=== PATIENT | male | born 1960 | race Two or more races ===

== ENCOUNTER 2020-06-10 11:43 | Outpatient (CLI) | payer OTHER ==
[~2020-06-10] VITALS: Ht 182.9 cm; Wt 88.5 kg
[2020-06-10] MEDS ORDERED: GLUMETZA500 MG (11:49)
[2020-06-10] MEDS ORDERED: LIPITOR40 M1 (11:49)
== END 2020-06-10 18:25 | disposition home or self-care (01) ==
LOC: OFIC 805 11:43
PROVIDERS: ATTEND Otolaryngology
DX: H93.12 Tinnitus, left ear (principal); H61.22 Impacted cerumen, left ear; H90.41 Sensorineural hearing loss, unilateral, right ear, with unrestricted hearing on the contralateral side